=== PATIENT | female | born 1930 | race Caucasian/White ===

== ENCOUNTER → 2020-10-21 | Outpatient (CLI) | payer MEDICARE ==
--- NOTE | 2020-10-22 10:40 | XR ---
EXAMINATION TYPE: XR wrist complete RT DATE OF EXAM: 10/21/2020 COMPARISON: NONE HISTORY: Pain TECHNIQUE: Two views submitted. FINDINGS: There is an intrauterine articular comminuted fracture of the distal radius and fracture of the ulnar styloid. Soft tissue edema noted. Diffuse osteopenia. 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 Chondrocalcinosis noted. IMPRESSION: 1. Comminuted intra-articular fracture with displacement distal radius. 2. Displaced ulnar styloid fracture.
== END | disposition home or self-care (01) ==
LOC: RADXRYALE 16:11
PROVIDERS: ATTEND Internal Medicine
DX: S52.571A Other intraarticular fracture of lower end of right radius, initial encounter for closed fracture (principal); S52.611A Displaced fracture of right ulna styloid process, initial encounter for closed fracture